=== PATIENT | male | born 2000 | race Caucasian/White ===

== ENCOUNTER 2022-04-12 04:05 | Emergency (ER) | payer OTHER, SELFPAY ==
[2022-04-12 04:16] VITALS: BP 164/101; PULSE 93; RESP 16; TEMP 36.7; O2SAT 100
[2022-04-12] MEDS: THIAMINE HCL 200 MG/2 ML VIAL 100 MG IV PUSH (05:07)
[2022-04-12] MEDS: SODIUM CHLORIDE 0.9% IV 1,000 ML 999 ML IV CONT (05:07)
[2022-04-12 05:24] LABS: Basophils Percent Auto 0.5 % (0.2-1.2); Hematocrit 39.8 % (42.0-52.0); Hemoglobin 14.6 g/dL (14.0-18.0); Immature Granulocyte Absolute 0.03 K/mm3 (0.00-0.031); Immature Granulocyte Percent A 0.4 % (0-0.5); Lymphocytes Absolute Auto 1.25 K/mm3 (0.9-3.2); Mean Corpuscular HGB Conc 36.7 g/dl (32-36); Mean Corpuscular Hemoglobin 33.7 pg (26-34); Mean Corpuscular Volume 91.9 fl (80-100); Mean Platelet Volume 9.1 fl (7.4-10.4); Monocytes Absolute Auto 0.8 K/mm3 (0.1-0.6); Monocytes Percent Auto 11.1 % (2.6-8.5); Neutrophils Absolute Auto 5.2 K/mm3 (1.3-6.7); Platelet Count Result 237 k/mm3 (150-375); Red Blood Count 4.33 M/mm3 (4.6-6.20); Red Cell Distribution Width 12.3 % (11.5-14.5); White Blood Count 7.4 K/mm3 (4.5-10.0)
[2022-04-12 05:33] LABS: Ethanol < 10 mg/dL (<10)
[2022-04-12 05:46] LABS: Alanine Aminotransferase 94 U/L (6-50); Albumin Level 5.2 g/dL (3.5-5.1); Alkaline Phosphatase 103 U/L (38-126); Anion Gap 11 mmol/L (8-16); Aspartate Amino Transferase 145 U/L (17-59); Bilirubin,Total 1.4 mg/dL (0.2-1.3); Blood Urea Nitrogen 5 mg/dL (9-20); Calcium 9.9 mg/dL (8.4-10.2); Carbon Dioxide 30 mmol/L (22-30); Chloride 90 mmol/L (98-107); Estimated CRCL calculation 130 ml/min; Estimated Glomerular Filt Rate > 60; Glucose 93 mg/dL (65-110); Magnesium 1.5 mg/dL (1.6-2.3); Potassium 2.9 mmol/L (3.4-5.0); Sodium 131 mmol/L (137-145)
[2022-04-12] MEDS: LORazepam INJ (*CRX) 2 MG/ML VIAL 1 MG IV PUSH (05:47)
[2022-04-12 06:02] LABS: Appearance Urine Clear (Clear); Bilirubin Urine Negative (Negative); Blood Urine Trace-lysed (Negative); Color Urine Yellow (Yellow); Glucose Urine UA Negative (Negative); Ketones Urine Trace mg/dL (Negative); Leukocyte Esterase Ur Negative LEU/UL (Negative); Nitrate Urine Negative (Negative); Protein Urine Negative (Negative); Urobilinogen Urine 0.2 mg/dL (<2.0)
[2022-04-12 06:06] LABS: Mucus Urine Rare /lpf; RBC Urine 0-2 /hpf (0-2); WBC Urine 0-3 /hpf
[2022-04-12 06:12] LABS: Add Urine Microscopic? YES
[2022-04-12 06:16] LABS: Amphetamine Screen Urine Negative (Negative); Barbiturate Screen Urine Negative (Negative); Benzodiazepines Screen Urine Negative (Negative); Cannabinoid Screen Urine Negative (Negative); Cocaine Screen Urine Negative (Negative); Methadone Screen Urine Negative (Negative); Opiate Screen Urine Negative (Negative); Phencyclidine Screen Urine Negative (Negative)
[2022-04-12] MEDS: MAGNESIUM SULF 2 GM/WATER 50ML 2 GM/50 ML BAG IVPB (06:28)
[2022-04-12] MEDS: POTASSIUM CHLORIDE 20 MEQ TABLET 40 MEQ PO (06:28)
--- NOTE | 2022-04-12 06:56 | ED.ALCOHOL ---
HPI - Alcohol General Chief Complaint: Alcohol <Manuel Greenwood DO - Last Filed: 04/12/22 07:45> Stated Complaint: etoh <Manuel Greenwood DO - Last Filed: 04/12/22 07:45> Time Seen by Provider: 04/12/22 04:48 <Manuel Greenwood DO - Last Filed: 04/12/22 07:45> Source: RN notes reviewed <Manuel Greenwood DO - Last Filed: 04/12/22 07:45> History of Present Illness HPI narrative: Patient presents emergency room from home for alcohol withdrawal. Patient states that he drinks approximately 1/5 of vodka a day states he has been doing this for several years. States that he decided to stop drinking 4 days ago. States that he has been feeling jittery as well as having auditory hallucinations earlier today but is not having them now. He denies any seizure activity he states that he has had no recent illness he denies any chest pain shortness of breath he denies having any nausea or vomiting but does note a decreased appetite <Manuel Greenwood DO - Last Filed: 04/12/22 07:45> Related Data Allergies/Adverse Reactions: Allergies Allergy/AdvReac Type Severity Reaction Status Date / Time No Known Allergies Allergy Verified 04/12/22 09:40 <Manuel Greenwood DO - Last Filed: 04/12/22 07:45> Review of Systems Review of Systems: Gen.: Denies fevers or chills Eyes: Denies eye pain or visual change ENT: Denies congestion Respiratory: Denies shortness of breath or cough CV: Denies chest pain or palpitations GI: Denies abdominal pain nausea, emesis or diarrhea Musculoskeletal: Denies back pain or muscle pain Neuro: Denies numbness, tingling, weakness or focal weakness reports auditory hallucinations earlier none now Skin: Denies rash Except as documented, all other systems reviewed and negative <DO Alessio Casillas Last Filed: 04/12/22 07:45> PMFSH Past Medical History Medical History: Medical History (Updated 04/12/22 @ 09:58 by Ac Fernandez MD) Patient denies significant medical history <Manuel Greenwood DO - Last Filed: 04/12/22 07:45> Social History Social History: Social History (System 04/12/22 @ 09:40 by Jaspal Chaparro) Smoking status: Never smoker Alcohol use details: Drinks 1/5 of vodka a day <Manuel Greenwood DO - Last Filed: 04/12/22 07:45> Exam Narrative: APPEARANCE: No acute distress, nontoxic, resting in bed EYES: EOMI HEENT: Normocephalic, atraumatic, OMM RESPIRATORY: No respiratory distress Clear to auscultation bilaterally with no rhonchi wheezing or rales. CARDIOVASCULAR: Regular rate and rhythm without murmurs rubs or gallops. ABDOMINAL: Soft, nontender, nondistended, no rebound or guarding MUSCULOSKELETAl: Moves all extremities. No clubbing, cyanosis or edema. NEURO: Awake and alert. Following commands, speech normal, no focal deficits SKIN:: Warm, dry. No rashes lesions or abrasions PSYCHIATRIC: Normal affect/mood, <Manuel Greenwood DO - Last Filed: 04/12/22 07:45> Course Course Emergency Course: Care turned over at shift change Dr. Fernandez awaiting case management evaluation and disposition <Manuel Greenwood DO - Last Filed: 04/12/22 07:45> Care turned over at shift change Dr. Fernandez awaiting case management evaluation and disposition [id number]: Coordination has been in this to the patient. They have been in contact with chest not services. Patient will be discharged home and feels comfortable as does his mom. They are continue to work through her chest not until they can find an inpatient alcohol rehab spot. Patient without tachycardia but has some very mild tremors. Will give small rx for librium. Discharge home. <Ac Fernandez MD - Last Filed: 04/12/22 09:59> Vital Signs Vital signs: Vital Signs Temperature 98.1 F 04/12/22 04:16 Pulse Rate 93 04/12/22 04:16 Respiratory Rate 16 04/12/22 04:16 Blood Pressure 164/101 H 04/12/22 04:16 Pulse Oximetry 100 04/12/22 04:16 Oxygen Delivery Ro
[2022-04-12 08:24] VITALS: BP 147/90; PULSE 78; RESP 14; O2SAT 100
--- NOTE | 2022-04-12 10:03 | PCCCNOTE ---
Late entry: called by ER charge account identification clerk at [id number] to meet with patient regarding alcohol resources. Met with patient and mother Hannah in ER Rm 6. Patient confirms his last drink of alcohol on 04/08 and is wanting inpatient rehab. Mother reports that she spoke with [facility] but they needed to speak with the patient. Called to [facility] and patient completed screening. Patient is feeling exhausted and hungry and not wanting to call additional places at this time. Resources provided that work with his insurance. His mother states that she knows about [facility] and [facility] but is really wanting him connected to [email or web address]. Mother is tearful and reports that she is a recovering alcoholic and healthcare market consultant and wanting resources for she and patient to go to meetings together. AA meetings resource list provided to patient and mom. Patient and mother give permission for healthcare market consultant to reach to [facility] and have them follow. Called to Demetrio at [facility] [phone], and requested follow up for patient. Per Demetrio they also have resources for family. Provided Demetrio with patient and mother Hannah's phone numbers. Mother reports that patient has social anxiety and stays in the house alot, he does not have a primary care doctor that follows with him. There is a name on the [place] insurance card Cristy Lin [phone], mother reports she has had a lot of issues with the assigned providers. This healthcare market consultant called to office at and spoke with medical receptionist medical assistant, she confirms that Cristyraquel Burtkizzy is an [employer] that they [place] the [place] and if they call they can get the patient an ER follow up as early as next week. All information provided to patient and Mom at bedside. ER MD Dr. Fernandez and lending consultant Hortencia yadav.
[2022-04-12 10:14] VITALS: BP 136/84; PULSE 98; RESP 18; O2SAT 100
== END 2022-04-12 10:15 | disposition home or self-care (01) ==
PROVIDERS: Emergency Provider Emergency Medicine; PCP Emergency Medicine
DX: F10.239 Alcohol dependence with withdrawal, unspecified (principal); Y90.0 Blood alcohol level of less than 20 mg/100 ml
CPT/HCPCS: 36415; 80053; 80307; 81001; 83735; 85025; 96361; 96365; 96375; 99284; A9270; J2060; J3411; J3475; J7030

== ENCOUNTER 2022-04-18 10:37 | Outpatient (CLI) | payer OTHER, SELFPAY ==
[2022-04-18 19:53] LABS: Alanine Aminotransferase 179 U/L (6-50); Alkaline Phosphatase 93 U/L (38-126); Anion Gap 5 mmol/L (8-16); Aspartate Amino Transferase 138 U/L (17-59); Bilirubin,Total 0.6 mg/dL (0.2-1.3); Blood Urea Nitrogen 6 mg/dL (9-20); Calcium 10.4 mg/dL (8.4-10.2); Carbon Dioxide 31 mmol/L (22-30); Chloride 101 mmol/L (98-107); Estimated Glomerular Filt Rate > 60; Glucose 91 mg/dL (65-110); Magnesium 2.2 mg/dL (1.6-2.3); Potassium 4.6 mmol/L (3.4-5.0); Sodium 137 mmol/L (137-145)
== END 2022-04-18 10:38 | disposition home or self-care (01) ==
LOC: ANHGOSHLAB 10:38
PROVIDERS: PCP Emergency Medicine; Visit Provider Nurse Practitioner
DX: R74.8 Abnormal levels of other serum enzymes (principal); E83.42 Hypomagnesemia
CPT/HCPCS: 36415; 80053; 83735; 84443

== ENCOUNTER 2024-08-13 10:54 | Emergency (ER) | payer SELFPAY ==
[2024-08-13 11:19] VITALS: BP 157/96; PULSE 97; RESP 19; TEMP 36.6; O2SAT 97
--- NOTE | 2024-08-13 13:52 | PC.NURSE ---
Called pt 3 times, no response.
== END 2024-08-13 14:36 | disposition left against medical advice (07) ==
LOC: ANHED 13:57
DX: R20.0 Anesthesia of skin (principal)
CPT/HCPCS: 99199

== ENCOUNTER 2025-01-16 10:24 | Observation (INO) | payer BC, SELFPAY ==
[2025-01-16] VITALS (8 sets, daily range): BP systolic 133–171; BP diastolic 72–87; PULSE 68–145; RESP 16–27; TEMP 37–38.9; O2SAT 98–100; BMI 19.5
--- NOTE | ~2025-01-16 | CT_ITS ---
EXAMINATION: CT brain wo con DATE: 01/16/2025 11:27 INDICATION: Altered mental status. TECHNIQUE: Computed tomography (CT) of the head was performed without intravenous contrast. The mA was adjusted according to patient size. Iterative reconstruction technique was employed. The dose-length product was 681.00 mGy-cm. COMPARISON: None FINDINGS: There is no intracranial hemorrhage, acute infarction, or abnormal intracranial mass lesion. The ventricles are normal in size. The paranasal sinuses are clear. The orbits are normal. The mastoid air cells are normal. IMPRESSION: 1. Normal brain. Reviewed, dictated and finalized at location E. UTER TYPESETTER IMPRESSION: 1. Normal brain.
--- NOTE | ~2025-01-16 | CT_ITS ---
EXAMINATION: CT cervical spine wo con DATE: 01/16/2025 11:27 INDICATION: Fall. TECHNIQUE: Computed tomography (CT) of the cervical spine was performed without intravenous contrast. Automated exposure control and iterative reconstruction technique were employed. The dose-length product was 379.22 mGy-cm. COMPARISON: None FINDINGS: There is 4 degrees dextrocurvature of cervical spine. Vertebral body heights are normal. There is mildly decreased disc height at C6-C7. There is multilevel [id number] facet joint osteoarthritis. There is no neural foraminal stenosis or central canal stenosis. IMPRESSION: 1. No fracture. 2. Mild cervical spondylosis. Reviewed, dictated and finalized at location E. [employer] WORKER
--- NOTE | ~2025-01-16 | XR_ITS ---
Examination: XR chest 1V portable Clinical History: Seizure Comparison: None Technique: Portable AP Findings: Heart size normal. Lungs clear. No acute bony abnormality. IMPRESSION: 1. No acute cardiopulmonary findings given portable technique. Reviewed, dictated and finalized at location R. N TIRE INSPECTOR
--- NOTE | 2025-01-16 10:45 | ED_ITS ---
HPI - General Adult General Chief complaint: Alcohol Stated complaint: alcohol withdrawals Time Seen by Provider: 01/16/25 10:26 History of Present Illness HPI narrative: Patient is a 24-year-old male who presents ER in alcohol withdrawal. He is orient times 2-3 with confusion on date and everything that is going on. He thinks his last drink of alcohol was at 5 in the morning. He typically drinks half of a handle of vodka daily. Father reports patient had a fall today striking left side of his head. There is an abrasion over left judaism. Patient denies any pain or other complaints at this time. Reports previous history of using clonazepam but has not used in a long time. Patient is tremulous and tachycardic. Related Data Allergies Allergy/AdvReac Type Severity Reaction Status Date / Time No Known Allergies Allergy Verified 01/16/25 14:40 Review of Systems 2 Review of Systems: ROS unobtainable: Yes unobtainable due to mental status PMFSH Past Medical History Medical History (Updated 01/16/25 @ 17:10 by Candida Coppola APRN) Alcoholism Allergies Broken ankle Broken ulna Family History Family History Father Cerebrovascular accident Depression Anxiety Alcoholism Grandparent Cerebrovascular accident Bone cancer COPD (chronic obstructive pulmonary disease) Liver cancer Lung cancer Mother Alcoholism Anxiety Depression Social History Social History Smoking status: Current some day smoker Tobacco type: e-cigarettes/vaping Alcohol intake: current Alcohol use details: Drinks 1/5 of vodka a day Substance use: never Substance use type: does not use Lack of Transportation: No Lack of Food: Never True Current Housing: I Have Housing Concerned About Future Housing: No Difficulty Paying Gas/Electric Bills: No Difficulty Paying for Meds: No Currently Unemployed: No Education: Decline to Answer Difficulty w/ Childcare or Family Care: No Spiritual care concerns: No Exam 2 Narrative: GENERAL: Ill-appearing, well-nourished, and in mild distress. HEAD: Normocephalic, atraumatic. EYES: PERRL and EOMI. ENT: Dry mucous membranes. NECK: Supple. CHEST: Clear to auscultation. No respiratory distress. HEART: Tachycardic and regular with a audible click along the left sternal day. Normal peripheral pulses. ABDOMEN: Soft, nontender, nondistended. EXTREMITIES: Normal range of motion. No edema. SKIN: Warm, dry, no rash. NEURO: Alert and oriented x3. PSYCH: Normal mood and affect. Course Course Emergency Course: 1305: Discussed with Dr. Ahmadi, patient is okay for the IMU and does not require ICU care at this time. Would recommend d/c ceftriaxone and start zosyn to cover for possible aspiration. Admit to hospitalist service. Electrolytes replaced orally and through IV. Vital Signs Vital signs: Vital Signs Temperature 99.6 F 01/16/25 10:34 Pulse Rate 145 H 01/16/25 10:34 Respiratory Rate 27 H 01/16/25 10:34 Blood Pressure 171/73 H 01/16/25 10:34 Pulse Oximetry 99 01/16/25 10:34 Oxygen Delivery Room Air 01/16/25 10:34 Temperature 96.8 F L 01/19/25 07:59 Pulse Rate 84 01/19/25 08:00 Respiratory Rate 18 01/19/25 07:59 Blood Pressure 115/75 01/19/25 07:59 Pulse Oximetry 100 01/19/25 07:59 Oxygen Delivery Room Air 01/19/25 08:35 Medical Decision Making Differential Diagnosis Differential Diagnosis: Alcohol withdrawal, alcohol intoxication, sepsis, pneumonia, UTI, electrolyte derangement, encephalopathy, seizure Vital Signs Vital Signs: Vital Signs Temperature 99.6 F 01/16/25 10:34 Pulse Rate 145 H 01/16/25 10:34 Respiratory Rate 27 H 01/16/25 10:34 Blood Pressure 171/73 H 01/16/25 10:34 Pulse Oximetry 99 01/16/25 10:34 Oxygen Delivery Room Air 01/16/25 10:34 Temperature 96.8 F L 01/19/25 07:59 Pulse Rate 84 01/19/25 08:00 Respiratory Rate 18 01/19/25 07:59 Blood Pressure 115/75 01/19/25 07:59 Pulse Oximetry 100 01/19/25 07:59 Oxygen Delivery Room Air 01/19/25 08:35 Lab Data 01/18/25 05:12 01/18/25 05:12 Labs: Lab Results 01/16/25 01/16/25 Range/Units 10:51 12:45 WBC 14.0 H (4.5-10.0) K/mm3 RBC 5.26 (4.6-6.20) M/mm3 Hgb 16.0 (14.0-18.0) g/dL Hct 46.2 (42.0-52.0) % MCV 87.8 (80-100) fl MCH 30.4 (26-34) pg MCHC 34.6 (32-36) g/dl RDW 14.0 (11.5-14.5) % Plt Count 140 L (150-375) k/mm3 MPV 9.1 (7.4-10.4) fl Immature Gran % (Auto) 0.6 H (0-0.5) % Neut % (Auto) 85.2 H (45.5-73.1) % Lymph % (Auto) 4.7 L (18.3-44.2) % [place] % (Auto) 9.2 H (2.6-8.5) % Eos % (Auto) 0.2 (0-4.4) % Baso % (Auto) 0.1 L (0.2-1.2) % Lymph # (Auto) 0.66 L (0.9-3.2) K/mm3 [place] # (Auto) 1.3 H (0.1-0.6) K/mm3 Eos # (Auto) 0.0 (0-0.3) K/mm3 Baso # (Auto) 0.0 (0.0-0.1) K/mm3 Abs Immat Gran (auto) 0.08 H (0.00-0.031) K/mm3 Absolute Neuts (auto) 11.9 H (1.3-6.7) K/mm3 Absolute Nucleated RBC 0.000 (0.0-0.012) K/mm3 Nucleated RBC % 0.0 (0.0-0.2) % PT 13.9 (11.1-14.7) Seconds INR 1.1 APTT 25.5 (22.3-36.8) Seconds Sodium 137 (137-145) mmol/L Potassium 2.5 L* (3.4-5.0) mmol/L Chloride 90 L (98-107) mmol/L Carbon Dioxide 12 L (22-30) mmol/L Anion Gap 35 H (4-12) mmol/L BUN 9 (9-20) mg/dL Creatinine 1.03 (0.7-1.3) mg/dL Estim Creat Clear Calc 94 ml/min Estimated GFR > 60 (59 - ) Glucose 172 H (65-110) mg/dL Calcium 10.1 (8.4-10.2) mg/dL Total Bilirubin 1.7 H (0.2-1.3) mg/dL AST 132 H (17-59) U/L ALT 97 H (6-50) U/L Alkaline Phosphatase 114 (38-126) U/L Ammonia 61 H (9-30) umol/L Total Protein 9.3 H (6.3-8.2) g/dL Albumin 5.7 H (3.5-5.1) g/dL Lipase 151 (23-300) U/L Urine Opiates Screen Negative (Negative) Urine Methadone Screen Negative (Negative) Ur Barbiturates Screen Negative (Negative) Ur Phencyclidine Scrn Negative (Negative) Ur Amphetamine Screen Negative (Negative) U Benzodiazepines Scrn Positive A (Negative) Urine Cocaine Screen Negative (Negative) U Cannabinoids Screen Negative (Negative) Ethyl Alcohol < 10 (<10) mg/dL Imaging Data Radiologist's impression: ITS Impressions Head CT 01/16/25 11:28 IMPRESSION: 1. Normal brain. Cervical Spine CT 01/16/25 11:29 IMPRESSION: 1. No fracture. 2. Mild cervical spondylosis. Chest X-Ray 01/16/25 13:08 IMPRESSION: 1. No acute cardiopulmonary findings given portable technique. Critical Care Time Critical Care Time Critical Care Time: Yes Total Critical Care Time: 35 Discharge Plan Discharge Clinical Impression: Alcohol withdrawal seizure, Hypokalemia Alcohol withdrawal Qualifiers: Complication of substance-induced condition: with unspecified complication Q ualified Code(s): F10.939 - Alcohol use, unspecified with withdrawal, unspecified Pneumonia Qualifiers: Pneumonia type: aspiration pneumonia Aspiration pneumonia type: due to vomit L aterality: unspecified laterality Lung location: unspecified part of lung Q ualified Code(s): J69.0 - Pneumonitis due to inhalation of food and vomit Patient Disposition: Still a Patient Condition: Stable
[2025-01-16] MEDS: SODIUM CHLORIDE 0.9% IV 1,000 ML 999 ML IV CONT ×2 (10:48)
[2025-01-16] MEDS: diazePAM INJ (*CRX) 10 MG/2 ML SYRINGE 5 MG IV PUSH (10:49)
[2025-01-16] MEDS: SODIUM CHLORIDE 0.9% IV 100 ML 999 ML IV CONT (10:49)
[2025-01-16] MEDS: THIAMINE HCL 200 MG/2 ML VIAL 100 MG IV PUSH (10:49)
[2025-01-16 11:06] LABS: Hematocrit 46.2 % (42.0-52.0); Hemoglobin 16.0 g/dL (14.0-18.0); Immature Granulocyte Percent A 0.6 % (0-0.5); Lymphocytes Absolute Auto 0.66 K/mm3 (0.9-3.2); Mean Corpuscular HGB Conc 34.6 g/dl (32-36); Mean Corpuscular Hemoglobin 30.4 pg (26-34); Mean Corpuscular Volume 87.8 fl (80-100); Nucleated Red Blood Cells Absolute Auto 0.000 K/mm3 (0.0-0.012); Nucleated Red Blood Cells Perc 0.0 % (0.0-0.2); Platelet Count Result 140 k/mm3 (150-375); Red Blood Count 5.26 M/mm3 (4.6-6.20); White Blood Count 14.0 K/mm3 (4.5-10.0)
[2025-01-16 11:17] LABS: INR 1.1; Prothrombin Time 13.9 Seconds (11.1-14.7)
[2025-01-16 11:18] LABS: Partial Thromboplastin Time 25.5 Seconds (22.3-36.8)
[2025-01-16 11:19] LABS: Ammonia 61 umol/L (9-30)
[2025-01-16 11:32] LABS: Alanine Aminotransferase 97 U/L (6-50); Albumin Level 5.7 g/dL (3.5-5.1); Alkaline Phosphatase 114 U/L (38-126); Anion Gap 35 mmol/L (4-12); Aspartate Amino Transferase 132 U/L (17-59); Bilirubin,Total 1.7 mg/dL (0.2-1.3); Blood Urea Nitrogen 9 mg/dL (9-20); Calcium 10.1 mg/dL (8.4-10.2); Carbon Dioxide 12 mmol/L (22-30); Chloride 90 mmol/L (98-107); Estimated CRCL calculation 94 ml/min; Estimated Glomerular Filt Rate > 60; Glucose 172 mg/dL (65-110); Lipase 151 U/L (23-300); Potassium 2.5 mmol/L (3.4-5.0); Sodium 137 mmol/L (137-145); Total Protein 9.3 g/dL (6.3-8.2)
[2025-01-16] MEDS: FOLIC ACID 1 MG/0.2 ML INJ IV PUSH (11:32)
[2025-01-16] MEDS: diazePAM INJ (*CRX) 10 MG/2 ML SYRINGE IV PUSH ×4 (11:41→18:54)
[2025-01-16] MEDS: POTASSIUM CHLORIDE 20 MEQ PACKET (FOR LIQUID) 40 MEQ PO (11:52)
[2025-01-16] MEDS: KCL 20 MEQ/SW 100 ML 100 ML 50 MEQ IVPB (12:07)
[2025-01-16] MEDS: ACETAMINOPHEN 650 MG SUPPOSITORY RECTAL (13:05)
[2025-01-16 13:09] LABS: Cannabinoid Screen Urine Negative (Negative)
--- NOTE | 2025-01-16 13:23 | P.HP_ITS ---
H&P: HPI History of Present Illness Date/Time: 01/16/25 13:23 Chief Complaint: Alcohol withdrawal Narrative: 24-year-old male with a past medical history of alcoholism presents to the ED from home with his father on 01/16/2025 with complaints of alcohol withdrawal and a seizure lasting about 1 minute while EN route to the ED. His father reports the patient fell today and hit the left side of his head as well. Has been abusing alcohol for about 5 years. Patient drinks up to half a handle of vodka daily. He has recently been trying to decrease his alcohol intake so he takes shots throughout the day in an attempt to prevent withdrawal symptoms. Previous withdrawal symptoms include seizure, tremors, visual and auditory hallucinations. Has been in inpatient rehab 3 times, all within the past year. The longest he has remained sober after rehab is 6 weeks. Patient further states he has been vomiting ?a lot? almost every day. The patient was admitted at [facility] about 6 weeks ago for alcohol withdrawal as well. Records requested. Patient lives with his father who works 12 hours. He wishes to discharge to a rehab program. Patient's father states he cannot go back to his home due to his continued alcohol abuse. Has little contact with his mother, who is also an alcoholic. Patient is interested in sober living housing after discharge from inpatient rehabilitation. Initial vital signs 171/73, HR 145, respirations 27, temperature 99.6?, O2 99% on room air. Next WBC 14.0, platelet count 140, potassium 2.5, chloride 90, carbon dioxide 12, anion gap 35, glucose 172. Total bilirubin 1.7, AST 132, ALT 97, ammonia 61. UDS negative for alcohol, positive for benzodiazepines. Head CT with no acute findings. Cervical spine CT with no fracture. No acute cardiopulmonary findings. Review of Systems Review of Systems: All systems reviewed & are unremarkable except as noted in HPI and below PMFSH Past Medical History Medical History (Updated 01/16/25 @ 17:10 by Candida Coppola APRN) Alcoholism Allergies Broken ankle Broken ulna Family History Family History Father Cerebrovascular accident Depression Anxiety Alcoholism Grandparent Cerebrovascular accident Bone cancer COPD (chronic obstructive pulmonary disease) Liver cancer Lung cancer Mother Alcoholism Anxiety Depression Social History Social History Smoking status: Current some day smoker Tobacco type: e-cigarettes/vaping Alcohol intake: current Alcohol use details: Drinks 1/5 of vodka a day Substance use: never Substance use type: does not use Lack of Transportation: No Lack of Food: Never True Current Housing: I Have Housing Concerned About Future Housing: No Difficulty Paying Gas/Electric Bills: No Difficulty Paying for Meds: No Currently Unemployed: No Education: Decline to Answer Difficulty w/ Childcare or Family Care: No Spiritual care concerns: No Meds Home Medications and Allergies Home Medications ?Medication ?Instructions ?Recorded ?Confirmed ?Type No Home Medications 01/16/25 01/16/25 H istory Allergies Allergy/AdvReac Type Severity Reaction Status Date / Time No Known Allergies Allergy Verified 01/16/25 14:40 Vital Signs Vital Signs - 24 hr 01/16/25 10:34 01/16/25 12:57 Temperature 99.6 F 102.1 F H Pulse Rate 145 H 117 H Respiratory Rate 27 H 16 Blood Pressure 171/73 H 150/87 H Pulse Oximetry 99 100 Oxygen Delivery Room Air H&P: Results Labs Labs: Short CBC 01/16/25 Range/Units 10:51 WBC 14.0 H (4.5-10.0) K/mm3 Hgb 16.0 (14.0-18.0) g/dL Hct 46.2 (42.0-52.0) % Plt Count 140 L (150-375) k/mm3 BMP 01/16/25 10:51 Sodium 137 Potassium 2.5 L* Chloride 90 L Carbon Dioxide 12 L BUN 9 Creatinine 1.03 Glucose 172 H Calcium 10.1 Liver Function 01/16/25 Range/Units 10:51 Total Bilirubin 1.7 H (0.2-1.3) mg/dL AST 132 H (17-59) U/L ALT 97 H (6-50) U/L Alkaline Phosphatase 114 (38-126) U/L Albumin 5.7 H (3.5-5.1) g/dL Assessment and Plan Assessment and plan (1) Alcohol withdrawal: Qualifiers: Complication of substance-induced condition: with unspecified complication Qualified Code(s): F10.939 - Alcohol use, unspecified with withdrawal, unspecified Code(s): F10.939 - Alcohol use, unspecified with withdrawal, unspecified Status: Acute Assessment and Plan: Alcohol withdrawal and a seizure lasting about 1 minute while EN route to the ED. Has been abusing alcohol for about 5 years. Patient drinks up to half a handle of vodka daily. He has recently been trying to decrease his alcohol intake so he takes shots throughout the day - daily ETOH use: Half a handle of vodka daily. Recently attempting to decrease intake. - last drink: Early this morning at about 5:00 a.m. - CIWA protocol in place - diazepam PRN - Librium 50 mg scheduled - thiamine and folic acid daily - seizure precautions - neurochecks Q2H - LR at 125 - antiemetics PRN - readiness to quit: Care coordination consulted. Patient is interested in discharging to inpatient rehab then sober living housing after that. (2) Pneumonia: Qualifiers: Pneumonia type: aspiration pneumonia Aspiration pneumonia type: due to vomit Laterality: unspecified laterality Lung location: unspecified part of lung Qualified Code(s): J69.0 - Pneumonitis due to inhalation of food and vomit Code(s): J18.9 - Pneumonia, unspecified organism Status: Acute Assessment and Plan: Concern for aspiration pneumonia due to frequent vomiting, leukocytosis, fever - started on Zosyn on 01/16 - acetaminophen p.r.n. - DuoNeb p.r.n. (3) Hypokalemia: Code(s): E87.6 - Hypokalemia Status: Acute Assessment and Plan: Potassium initially 2.5 on presentation. Improved to 3.0 after 20 mEq potassium chloride and 40 mEq p.o. -continue to trend electrolytes (4) Serum ammonia increased: Code(s): E72.20 - Disorder of urea cycle metabolism, unspecified Status: Acute Assessment and Plan: Ammonia 6.1 on admit. -lactulose 20 g p.o. Q8 -titrate to achieve 2-3 soft bowel movements daily -switch to lactulose enema if patient unable to tolerate p.o. Plan Diet: Regular GI prophylaxis: Protonix DVT prophylaxis: SCDs lines/drains: PIV Fluids: LR at 125 Code status: Full Quality VTE Prophylaxis VTE prophylaxis: mechanical ordered Hospitalist MIPS Advance Care Plan I have confirmed that the patient's Advanced Care Plan is present, code status is documented, or surrogate decision maker is listed in patient medical record.: Yes Medication Reconciliation I have utilized all available resources to obtain, update and review the patients current medications (includes all prescriptions, OTC, herbals, cannab is, and nutritional supplements).: Yes
[2025-01-16] MEDS: PIPERACILLIN/TAZOBACTAM SOD 3.375 GM in SODIUM CHLORIDE 0.9% IV 50 ML 100 ML IVPB ×2 (13:47→18:53)
[2025-01-16] MEDS: chlordiazePOXIDE (*CRX) 25 MG CAPSULE 50 MG PO ×2 (13:52→18:54)
--- NOTE | 2025-01-16 14:05 | WPCEDHO ---
ED Hand Off Checklist All vitals saved:yes IV Site documented:yes All med administrations documented:yes Triage Note Triage Note Patient to the ED with complaints 01/16/25 10:34 of alcohol and drug withdrawal. Patient states he has gone through alcohol withdrawal around 6 weeks ago. patient states he drank vodka last at 0500 this morning. Father states patient had a seizure in route to the ED lasting approx 1 minute. Allergies No Known Allergies Allergy (Verified 10/04/24 15:48) Family History (Last Reviewed 10/04/24 @ 15:53 by Ravin Gale MD) Father Cerebrovascular accident Depression Anxiety Alcoholism Grandparent Cerebrovascular accident Bone cancer COPD (chronic obstructive pulmonary disease) Liver cancer Lung cancer Mother Alcoholism Anxiety Depression Active Medications including assessments/comments Diazepam (Diazepam Inj (*Crx) 10 Mg/2 Ml Syringe) 10 mg IV PUSH Q5M PRN PRN Reason: CIWA > 15 Last Admin: 01/16/25 13:57 Dose: 10 mg Documented By: [facility] SYLVIA CINE Assessment Document 01/16/25 13:57 [facility] (Rec: 01/16/25 13:57 [facility] [id number]) [facility] Assessment Reason for CIWA orders Administration Most Recent CIWA 15 Score Administered/Completed Medications Discontinued Medications Acetaminophen (Acetaminophen 650 Mg Suppository) 650 mg RECTAL ONCE ONE Stop: 01/16/25 13:03 Last Admin: 01/16/25 13:05 Dose: 650 mg Documented By: [facility] Chlordiazepoxide HCl (Chlordiazepoxide (*Crx) 25 Mg Capsule) 50 mg PO ONCE ONE Stop: 01/16/25 13:36 Last Admin: 01/16/25 13:52 Dose: 50 mg Documented By: [facility] Diazepam (Diazepam Inj (*Crx) 10 Mg/2 Ml Syringe) 5 mg IV PUSH ONCE ONE Stop: 01/16/25 10:37 Last Admin: 01/16/25 10:49 Dose: 5 mg Documented By: [facility] Diazepam (Diazepam Inj (*Crx) 10 Mg/2 Ml Syringe) 10 mg IV PUSH ONCE ONE Stop: 01/16/25 11:07 Last Admin: 01/16/25 11:41 Dose: 10 mg Documented By: [facility] Folic Acid (Folic Acid 1 Mg/0.2 Ml Inj) 1 mg IV PUSH ONCE STA Stop: 01/16/25 10:37 Last Admin: 01/16/25 11:32 Dose: 1 mg Documented By: [facility] Sodium Chloride (Normal Saline Iv) 1,000 mls @ 999 mls/hr IV CONT .Q1H1M STA Stop: 01/16/25 11:43 Last Infusion: 01/16/25 13:10 Dose: Infused Documented By: [facility] Admin: 01/16/25 10:48 Dose: 999 mls/hr Documented By: [facility] Sodium Chloride (Normal Saline Iv) 1,000 mls @ 999 mls/hr IV CONT .Q1H1M STA Stop: 01/16/25 11:43 Last Admin: 01/16/25 10:48 Dose: 999 mls/hr Documented By: [facility] Sodium Chloride (Normal Saline Iv) 100 mls @ 999 mls/hr IV CONT .Q6M STA Stop: 01/16/25 10:48 Last Infusion: 01/16/25 11:44 Dose: Infused Documented By: [facility] Admin: 01/16/25 10:49 Dose: 999 mls/hr Documented By: [facility] Potassium Chloride (Kcl 20 Meq/Sw 100 Ml) 100 mls @ 50 mls/hr IVPB ONCE STA Stop: 01/16/25 13:34 Last Admin: 01/16/25 12:07 Dose: 50 mls/hr Documented By: LEONARD Co-signed By: PLOLO Ceftriaxone Sodium 1 gm/ (Sodium Chloride) 50 mls @ 100 mls/hr IVPB ONCE STA Stop: 01/16/25 13:30 Last Admin: 01/16/25 13:36 Dose: Not Given Documented By: [facility] Non-Admin Reason: Order Discontinued Piperacillin Sod/Tazobactam (Sod 3.375 gm/ Sodium Chloride) 50 mls @ 100 mls/hr IVPB ONCE STA Stop: 01/16/25 13:34 Last Admin: 01/16/25 13:47 Dose: 100 mls/hr Documented By: [facility] Potassium Chloride (Potassium Chloride 20 Meq Er Tablet) 40 meq PO ONCE STA Stop: 01/16/25 11:36 Last Admin: 01/16/25 11:53 Dose: Not Given Documented By: [facility] Non-Admin Reason: Order Discontinued Potassium Chloride (Potassium Chloride 20 Meq Packet (For Liquid)) 40 meq PO ONCE STA Stop: 01/16/25 11:48 Last Admin: 01/16/25 11:52 Dose: 40 meq Documented By: [facility] Thiamine HCl (Thiamine Hcl 200 Mg/2 Ml Vial) 100 mg IV PUSH ONCE STA Stop: 01/16/25 10:37 Last Admin: 01/16/25 10:49 Dose: 100 mg Documented By: [facility] Interventions/Assessments IV / Saline Lock, Insert Start: 01/16/25 10:24 Freq: Status: Active Protocol: Document 01/16/25 12:07 [facility] (Rec: 01/16/25 12:07 [facility] [id number]) IV Assessment Peripheral Access Right Hand IV Catheter Access Initiated IV Insertion Date 01/16/25 IV Insertion Time 12:07 Catheter Gauge 18 IV Insertion 1 Attempts Ultrasound Used for No Placement IV Site Assessment WNL IV Care and WNL Maintenance PA: Neurological Assessment Start: 01/16/25 10:24 Freq: Status: Active Protocol: Document 01/16/25 10:38 [facility] (Rec: 01/16/25 10:38 [facility] [id number]) Neurological Assessment Level of Alert,Awake Consciousness Arousable to Verbal Orientation Oriented to Person,Oriented to Place,Oriented to Time Neurological Confusion,Tremors Symptoms Hallucination Type None Unable to Redirect No Behavior Behavior Appropriate,Cooperative Patient Able to Comprehend Comprehension Memory Description Intact Ability to Maintain Impaired Balance Facial Symmetry Symmetrical Speech Pattern Clear Ability to Swallow Normal Tongue Position Midline Longs Coma Scale Eyes Open Verbal Oriented and Alert Motor Follows Commands Ruth Ann Coma Total 15 Score Last Vital Signs Temperature 99.5 F 01/16/25 13:58 Pulse Rate 95 01/16/25 13:58 Respiratory Rate 18 01/16/25 13:58 Pulse Oximetry 98 01/16/25 13:58 Blood Pressure 137/73 01/16/25 13:58 Blood Pressure Mean 94 01/16/25 13:58 Oxygen Delivery Room Air 01/16/25 10:34 Weight 66.9 kg 01/16/25 10:34 Last Result - Abnormals Only WBC 14.0 K/mm3 (4.5-10.0) H 01/16/25 10:51 Plt Count 140 k/mm3 (150-375) L 01/16/25 10:51 Immature Gran % (Auto) 0.6 % (0-0.5) H 01/16/25 10:51 Neut % (Auto) 85.2 % (45.5-73.1) H 01/16/25 10:51 Lymph % (Auto) 4.7 % (18.3-44.2) L 01/16/25 10:51 [place] % (Auto) 9.2 % (2.6-8.5) H 01/16/25 10:51 Baso % (Auto) 0.1 % (0.2-1.2) L 01/16/25 10:51 Lymph # (Auto) 0.66 K/mm3 (0.9-3.2) L 01/16/25 10:51 [place] # (Auto) 1.3 K/mm3 (0.1-0.6) H 01/16/25 10:51 Abs Immat Gran (auto) 0.08 K/mm3 (0.00-0.031) H 01/16/25 10:51 Absolute Neuts (auto) 11.9 K/mm3 (1.3-6.7) H 01/16/25 10:51 Potassium 2.5 mmol/L (3.4-5.0) L* 01/16/25 10:51 Chloride 90 mmol/L (98-107) L 01/16/25 10:51 Carbon Dioxide 12 mmol/L (22-30) L 01/16/25 10:51 Anion Gap 35 mmol/L (4-12) H 01/16/25 10:51 Glucose 172 mg/dL (65-110) H 01/16/25 10:51 Total Bilirubin 1.7 mg/dL (0.2-1.3) H 01/16/25 10:51 AST 132 U/L (17-59) H 01/16/25 10:51 ALT 97 U/L (6-50) H 01/16/25 10:51 Ammonia 61 umol/L (9-30) H 01/16/25 10:51 Total Protein 9.3 g/dL (6.3-8.2) H 01/16/25 10:51 Albumin 5.7 g/dL (3.5-5.1) H 01/16/25 10:51 U Benzodiazepines Scrn Positive (Negative) A 01/16/25 12:45 Most Recent CIWA Score CIWA Total Score 15 01/16/25 13:53
--- NOTE | 2025-01-16 14:35 | ADMGEN ---
This patient, Jorge Oneil, was admitted to IMU Room 206-01 @ 1435. Patient/family oriented to hospital policies and general routines including ID bracelet, bed and alarms, visiting hours, pain management, procedures, bathroom and other care routines, personal items, smoking policy, room service/diet, and visiting hours. Information on how to activate the Rapid Response Team has been discussed. Patient/Family are encouraged to report perceived risks to care and to ask questions if they do not understand what they are told or what they should do.
[2025-01-16] MEDS: AZITHROMYCIN IV 500 MG in SODIUM CHLORIDE 0.9% IV 250 ML IVPB (15:28)
[2025-01-16] MEDS: ONDANSETRON INJ 4 MG/2 ML VIAL IV PUSH (15:28)
[2025-01-16] MEDS: LACTATED RINGERS 1,000 ML 125 ML IV CONT (15:29)
[2025-01-16] MEDS: LACTULOSE 20 GM/30 ML UDC PO ×2 (15:30→21:36)
[2025-01-16] MEDS: PANTOPRAZOLE 40 MG TABLET PO (15:31)
[2025-01-16 16:03] LABS: Anion Gap 8 mmol/L (4-12); Blood Urea Nitrogen 9 mg/dL (9-20); Calcium 8.9 mg/dL (8.4-10.2); Carbon Dioxide 28 mmol/L (22-30); Chloride 98 mmol/L (98-107); Estimated CRCL calculation 121 ml/min; Estimated Glomerular Filt Rate > 60; Glucose 77 mg/dL (65-110); Magnesium 1.6 mg/dL (1.6-2.3); Potassium 3.0 mmol/L (3.4-5.0); Sodium 134 mmol/L (137-145)
[2025-01-16] MEDS: NICOTINE (*PBKC) 21 MG PATCH 1 PATCH TRANSDERM (16:06)
[2025-01-17] VITALS (11 sets, daily range): BP systolic 125–149; BP diastolic 76–86; PULSE 71–115; RESP 15–20; TEMP 36.4–37.2; O2SAT 99–100
[2025-01-17] MEDS: chlordiazePOXIDE (*CRX) 25 MG CAPSULE 50 MG PO ×5 (00:26→23:34)
[2025-01-17] MEDS: PIPERACILLIN/TAZOBACTAM SOD 3.375 GM in SODIUM CHLORIDE 0.9% IV 50 ML 100 ML IVPB ×5 (00:26→23:34)
[2025-01-17] MEDS: LACTATED RINGERS 1,000 ML 125 ML IV CONT ×2 (01:07→08:34)
[2025-01-17 04:10] LABS: Hematocrit 39.2 % (42.0-52.0); Hemoglobin 13.4 g/dL (14.0-18.0); Immature Granulocyte Percent A 0.4 % (0-0.5); Immature Platelet Fraction Pct 4.1 % (0.9-11.2); Lymphocytes Absolute Auto 1.48 K/mm3 (0.9-3.2); Mean Corpuscular HGB Conc 34.2 g/dl (32-36); Mean Corpuscular Hemoglobin 29.8 pg (26-34); Mean Corpuscular Volume 87.3 fl (80-100); Nucleated Red Blood Cells Absolute Auto 0.000 K/mm3 (0.0-0.012); Nucleated Red Blood Cells Perc 0.0 % (0.0-0.2); Platelet Count Result 101 k/mm3 (150-375); Red Blood Count 4.49 M/mm3 (4.6-6.20); White Blood Count 7.9 K/mm3 (4.5-10.0)
[2025-01-17 04:21] LABS: Ammonia < 9 umol/L (9-30)
[2025-01-17 04:38] LABS: Alanine Aminotransferase 83 U/L (6-50); Albumin Level 4.1 g/dL (3.5-5.1); Alkaline Phosphatase 96 U/L (38-126); Anion Gap 6 mmol/L (4-12); Aspartate Amino Transferase 204 U/L (17-59); Bilirubin,Total 1.8 mg/dL (0.2-1.3); Blood Urea Nitrogen 4 mg/dL (9-20); Calcium 9.4 mg/dL (8.4-10.2); Carbon Dioxide 29 mmol/L (22-30); Chloride 96 mmol/L (98-107); Estimated CRCL calculation 149 ml/min; Estimated Glomerular Filt Rate > 60; Glucose 79 mg/dL (65-110); Magnesium 1.6 mg/dL (1.6-2.3); Potassium 2.9 mmol/L (3.4-5.0); Sodium 131 mmol/L (137-145); Total Protein 6.9 g/dL (6.3-8.2)
[2025-01-17] MEDS: MAGNESIUM SULF 2 GM/WATER 50ML 2 GM/50 ML BAG IVPB (08:34)
[2025-01-17] MEDS: POTASSIUM CHLORIDE INJ 40 MEQ in SODIUM CHLORIDE 0.9% IV 500 ML 130 MEQ IVPB (08:35)
[2025-01-17] MEDS: FOLIC ACID 1 MG TABLET PO (08:36)
[2025-01-17] MEDS: NICOTINE (*PBKC) 21 MG PATCH 1 PATCH TRANSDERM (08:36)
[2025-01-17] MEDS: POTASSIUM CHLORIDE 20 MEQ ER TABLET PO (08:36)
[2025-01-17] MEDS: PANTOPRAZOLE 40 MG TABLET PO (08:36)
[2025-01-17] MEDS: THIAMINE HCL 100 MG TABLET PO (08:36)
--- NOTE | 2025-01-17 14:23 | PM.IMPN2 ---
Subjective Date/time seen: 01/17/25 14:23 Interval history: Feels little better. CIWA score reviewed. Trending down. Remains on Librium. Family at bedside. Review of Systems Review of Systems: All systems reviewed & are unremarkable except as noted in HPI and below Exam Narrative: GENERAL: Well-appearing, well-nourished, no acute distress HEAD: Normocephalic, atraumatic. Injury to his face noted with scabs no active bleeding EYES: PERRL and EOMI. ENT: Dry mucous membranes. NECK: Supple. CHEST: Clear to auscultation. No respiratory distress. HEART: Regular rate and rhythm, Normal peripheral pulses. ABDOMEN: Soft, nontender, nondistended. EXTREMITIES: Normal range of motion. No edema. SKIN: Warm, dry, no rash. NEURO: Alert and oriented x3. PSYCH: Normal mood and affect. Slightly tremulous Objective Data Vital Signs Vital Signs: Vital Signs - 24 hr 01/16/25 15:00 01/16/25 16:00 01/16/25 16:00 Temperature 98.9 F 99.0 F Pulse Rate 89 94 Pulse Rate [Apical] Respiratory Rate 20 20 Blood Pressure 151/73 H 147/72 H Pulse Oximetry 98 100 100 Oxygen Delivery Room Air 01/16/25 16:00 01/16/25 18:00 01/16/25 20:00 Temperature 98.6 F Pulse Rate 100 99 68 Pulse Rate [Apical] Respiratory Rate 20 Blood Pressure 133/75 Pulse Oximetry 100 Oxygen Delivery 01/16/25 20:00 01/16/25 20:00 01/16/25 20:00 Temperature Pulse Rate 72 Pulse Rate [Apical] 91 Respiratory Rate Blood Pressure Pulse Oximetry 100 Oxygen Delivery Room Air 01/16/25 22:00 01/17/25 00:00 01/17/25 00:00 Temperature 98.2 F Pulse Rate 88 86 Pulse Rate [Apical] 88 Respiratory Rate 15 Blood Pressure 142/86 H Pulse Oximetry 100 Oxygen Delivery 01/17/25 00:00 01/17/25 00:00 01/17/25 02:00 Temperature Pulse Rate 95 87 Pulse Rate [Apical] Respiratory Rate Blood Pressure Pulse Oximetry 100 Oxygen Delivery Room Air 01/17/25 04:00 01/17/25 04:00 01/17/25 04:00 Temperature 98.9 F Pulse Rate 88 Pulse Rate [Apical] 83 Respiratory Rate 18 Blood Pressure 137/82 Pulse Oximetry 100 100 Oxygen Delivery Room Air 01/17/25 06:00 01/17/25 07:54 01/17/25 08:00 Temperature Pulse Rate 71 83 Pulse Rate [Apical] 89 Respiratory Rate 18 Blood Pressure Pulse Oximetry 100 Oxygen Delivery Room Air 01/17/25 08:00 01/17/25 08:00 01/17/25 10:00 Temperature 97.5 F L Pulse Rate 96 83 94 Pulse Rate [Apical] Respiratory Rate 18 Blood Pressure 149/76 H Pulse Oximetry 100 Oxygen Delivery 01/17/25 12:00 01/17/25 12:00 01/17/25 12:00 Temperature 98.7 F Pulse Rate 92 93 93 Pulse Rate [Apical] Respiratory Rate 20 20 Blood Pressure 149/85 H Pulse Oximetry 100 100 Oxygen Delivery Room Air Intake/Output Intake/Output: Intake & Output 01/14/25 01/15/25 01/16/25 01/17/25 23:59 23:59 23:59 23:59 Intake Total 3100 2151.3 Balance 3100 2151.3 Meds/Results Medications: Active Medications Generic Name Dose Route Start Last Admin Trade Name Freq PRN Reason Stop Dose Admin Acetaminophen 650 mg 01/16/25 13:17 Acetaminophen 325 Mg Tablet PO Q4H PRN Mild Pain (1-3) or Fever Albuterol/Ipratropium 3 ml 01/16/25 17:08 Ipratropium 0.5 Mg/Albuterol Sulfate 2.5 Mg (Base) Ampul.Neb 3 Ml INHALATION Q6HRT PRN Shortness Of Breath Or Wheezing Chlordiazepoxide HCl 50 mg 01/16/25 18:00 01/17/25 11:52 Chlordiazepoxide (*Crx) 25 Mg Capsule PO 50 mg Q6HR PANFILO Administration Diazepam 5 mg 01/16/25 16:25 Diazepam Inj (*Crx) 10 Mg/2 Ml Syringe IV PUSH Q1H PRN Alcohol Withdrawal Folic Acid 1 mg 01/17/25 09:00 01/17/25 08:36 Folic Acid 1 Mg Tablet PO 1 mg DAILY PANFILO Administration Piperacillin Sod/Tazobactam 50 mls @ 100 mls/hr 01/16/25 19:00 01/17/25 11:51 Sod 3.375 gm/ Sodium Chloride IVPB 100 mls/hr Q6HR PANFILO Administration Lactated Ringer's 1,000 mls @ 125 mls/hr 01/16/25 13:20 01/17/25 08:34 Lr - Lactated Ringers Iv IV CONT 125 mls/hr .Q8H PANFILO Administration Azithromycin 500 mg/ Sodium 250 mls @ 250 mls/hr 01/17/25 16:00 Chloride IVPB 01/20/25 16:59 Q24H PANFILO Lactulose 20 gm 01/16/25 13:55 01/17/25 13:28 Lactulose 20 Gm/30 Ml Udc PO Not Given Q8H PANFILO Nicotine 1 patch 01/16/25 15:55 01/17/25 08:36 Nicotine (*Ilda) 21 Mg Patch TRANSDERM 1 patch DAILY PANFILO Administration Ondansetron HCl 4 mg 01/16/25 13:27 01/16/25 15:28 Ondansetron Inj 4 Mg/2 Ml Vial IV PUSH 4 mg Q4H PRN Administration Nausea And Vomiting Pantoprazole Sodium 40 mg 01/16/25 15:30 01/17/25 08:36 Pantoprazole 40 Mg Tablet PO 40 mg QAM PANFILO Administration Potassium Chloride 20 meq 01/17/25 08:00 01/17/25 08:36 Potassium Chloride 20 Meq Er Tablet PO 20 meq DAILY@0800 PANFILO Administration Thiamine HCl 100 mg 01/17/25 09:00 01/17/25 08:36 Thiamine Hcl 100 Mg Tablet PO 100 mg DAILY PANFILO Administration Radiology Results: ITS Impressions Head CT 01/16/25 11:28 IMPRESSION: 1. Normal brain. Cervical Spine CT 01/16/25 11:29 IMPRESSION: 1. No fracture. 2. Mild cervical spondylosis. Chest X-Ray 01/16/25 13:08 IMPRESSION: 1. No acute cardiopulmonary findings given portable technique. Labs Labs: Laboratory Results - last 24 hr 01/16/25 01/16/25 01/17/25 15:32 18:57 00:03 WBC RBC Hgb Hct MCV MCH MCHC RDW Plt Count MPV Immature Gran % (Auto) Neut % (Auto) Lymph % (Auto) [place] % (Auto) Eos % (Auto) Baso % (Auto) Lymph # (Auto) [place] # (Auto) Eos # (Auto) Baso # (Auto) Abs Immat Gran (auto) Absolute Neuts (auto) Absolute Nucleated RBC Nucleated RBC % % Immature Plt Fraction Sodium 134 L Potassium 3.0 L Chloride 98 Carbon Dioxide 28 Anion Gap 8 BUN 9 Creatinine 0.77 Estim Creat Clear Calc 121 Estimated GFR > 60 Glucose 77 POC Capillary Glucose 90 77 Calcium 8.9 Magnesium 1.6 Total Bilirubin AST ALT Alkaline Phosphatase Ammonia Total Protein Albumin 01/17/25 01/17/25 01/17/25 03:59 06:26 11:22 WBC 7.9 RBC 4.49 L Hgb 13.4 L Hct 39.2 L MCV 87.3 MCH 29.8 MCHC 34.2 RDW 13.8 Plt Count 101 L MPV 9.8 Immature Gran % (Auto) 0.4 Neut % (Auto) 71.5 Lymph % (Auto) 18.9 [place] % (Auto) 8.7 H Eos % (Auto) 0.0 Baso % (Auto) 0.5 Lymph # (Auto) 1.48 [place] # (Auto) 0.7 H Eos # (Auto) 0.0 Baso # (Auto) 0.0 Abs Immat Gran (auto) 0.03 Absolute Neuts (auto) 5.6 Absolute Nucleated RBC 0.000 Nucleated RBC % 0.0 % Immature Plt Fraction 4.1 Sodium 131 L Potassium 2.9 L Chloride 96 L Carbon Dioxide 29 Anion Gap 6 BUN 4 L D Creatinine 0.61 L Estim Creat Clear Calc 149 Estimated GFR > 60 Glucose 79 POC Capillary Glucose 97 83 Calcium 9.4 Magnesium 1.6 Total Bilirubin 1.8 H AST 204 H ALT 83 H Alkaline Phosphatase 96 Ammonia < 9 L Total Protein 6.9 Albumin 4.1 Assessment and Plan Assessment and Plan (1) Alcohol withdrawal: Qualifiers: Complication of substance-induced condition: with unspecified complication Qualified Code(s): F10.939 - Alcohol use, unspecified with withdrawal, unspecified Code(s): F10.939 - Alcohol use, unspecified with withdrawal, unspecified Status: Acute Assessment and Plan: Alcohol withdrawal and a seizure lasting about 1 minute while EN route to the ED. Has been abusing alcohol for about 5 years. Patient drinks up to half a handle of vodka daily. He has recently been trying to decrease his alcohol intake so he takes shots throughout the day - daily ETOH use: Half a handle of vodka daily. Recently attempting to decrease intake. - last drink: Early this morning at about 5:00 a.m. - CIWA protocol in place - diazepam PRN - Librium 50 mg scheduled - thiamine and folic acid daily - seizure precautions - neurochecks Q2H - LR at 125 - antiemetics PRN - readiness to quit: Care coordination consulted. Patient is interested in discharging to inpatient rehab then sober living housing after that. (2) Pneumonia: Qualifiers: Aspiration pneumonia type: due to vomit Laterality: unspecified laterality Lung location: unspecified part of lung Pneumonia type: aspiration pneumonia Qualified Code(s): J69.0 - Pneumonitis due to inhalation of food and vomit Code(s): J18.9 - Pneumonia, unspecified organism Status: Acute Assessment and Plan: Concern for aspiration pneumonia due to frequent vomiting, leukocytosis, fever - started on Zosyn on 01/16 - acetaminophen p.r.n. - DuoNeb p.r.n. (3) Hypokalemia: Code(s): E87.6 - Hypokalemia Status: Acute Assessment and Plan: Potassium initially 2.5 on presentation. Improved to 3.0 after 20 mEq potassium chloride and 40 mEq p.o. -continue to trend electrolytes Replace and monitor (4) Serum ammonia increased: Code(s): E72.20 - Disorder of urea cycle metabolism, unspecified Status: Acute Assessment and Plan: Ammonia 61 on admit. -lactulose 20 g p.o. Q8 -titrate to achieve 2-3 soft bowel movements daily -switch to lactulose enema if patient unable to tolerate p.o. Repeat ammonia normal Plan Diet: Regular GI prophylaxis: Protonix DVT prophylaxis: SCDs Code status: Full
[2025-01-17] MEDS: AZITHROMYCIN IV 500 MG in SODIUM CHLORIDE 0.9% IV 250 ML IVPB (17:10)
[2025-01-18] VITALS (7 sets, daily range): BP systolic 118–139; BP diastolic 73–89; PULSE 82–120; RESP 16–20; TEMP 35.6–36.7; O2SAT 99–100
--- NOTE | 2025-01-18 01:05 | ADMGEN ---
This patient, Jorge Oneil, was transferred to [facility] Surg Room 310-01. Patient/family oriented to hospital policies and general routines including ID bracelet, bed and alarms, visiting hours, pain management, procedures, bathroom and other care routines, personal items, smoking policy, room service/diet, and visiting hours. Information on how to activate the Rapid Response Team has been discussed. Patient/Family are encouraged to report perceived risks to care and to ask questions if they do not understand what they are told or what they should do.
--- NOTE | 2025-01-18 01:07 | PC.NURSE ---
pt has arrived to floor at this time. pt oriented to room all belongings and call light in reach. pt educated on bed alarm and refused to have it on stating he doesn't need it. educated on the importance of the bed alarm and continue to refuse. seizure precautions in place at this time. pt currently in shower independently.
[2025-01-18 05:28] LABS: Hematocrit 41.4 % (42.0-52.0); Hemoglobin 13.9 g/dL (14.0-18.0); Immature Granulocyte Percent A 0.5 % (0-0.5); Immature Platelet Fraction Pct 5.1 % (0.9-11.2); Lymphocytes Absolute Auto 1.35 K/mm3 (0.9-3.2); Mean Corpuscular HGB Conc 33.6 g/dl (32-36); Mean Corpuscular Hemoglobin 30.1 pg (26-34); Mean Corpuscular Volume 89.6 fl (80-100); Nucleated Red Blood Cells Absolute Auto 0.000 K/mm3 (0.0-0.012); Nucleated Red Blood Cells Perc 0.0 % (0.0-0.2); Platelet Count Result 101 k/mm3 (150-375); Red Blood Count 4.62 M/mm3 (4.6-6.20); White Blood Count 7.5 K/mm3 (4.5-10.0)
[2025-01-18] MEDS: chlordiazePOXIDE (*CRX) 25 MG CAPSULE 50 MG PO ×3 (05:42→17:46)
[2025-01-18] MEDS: PIPERACILLIN/TAZOBACTAM SOD 3.375 GM in SODIUM CHLORIDE 0.9% IV 50 ML 100 ML IVPB (05:43)
[2025-01-18 05:54] LABS: Alanine Aminotransferase 82 U/L (6-50); Albumin Level 4.0 g/dL (3.5-5.1); Alkaline Phosphatase 100 U/L (38-126); Anion Gap 3 mmol/L (4-12); Aspartate Amino Transferase 217 U/L (17-59); Bilirubin,Total 0.9 mg/dL (0.2-1.3); Blood Urea Nitrogen 7 mg/dL (9-20); Calcium 9.2 mg/dL (8.4-10.2); Carbon Dioxide 33 mmol/L (22-30); Chloride 100 mmol/L (98-107); Estimated CRCL calculation 170 ml/min; Estimated Glomerular Filt Rate > 60; Glucose 103 mg/dL (65-110); Magnesium 2.1 mg/dL (1.6-2.3); Potassium 3.3 mmol/L (3.4-5.0); Sodium 136 mmol/L (137-145); Total Protein 7.0 g/dL (6.3-8.2)
[2025-01-18] MEDS: NICOTINE (*PBKC) 21 MG PATCH 1 PATCH TRANSDERM (09:08)
[2025-01-18] MEDS: POTASSIUM CHLORIDE 20 MEQ ER TABLET 40 MEQ PO ×2 (09:08→13:19)
[2025-01-18] MEDS: FOLIC ACID 1 MG TABLET PO (09:08)
[2025-01-18] MEDS: THIAMINE HCL 100 MG TABLET PO (09:08)
[2025-01-18] MEDS: POTASSIUM CHLORIDE 20 MEQ ER TABLET PO (09:08)
[2025-01-18] MEDS: PANTOPRAZOLE 40 MG TABLET PO (09:08)
--- NOTE | 2025-01-18 12:54 | P.PNIM_ITS ---
Assessment and Plan Assessment and Plan (1) Alcohol withdrawal: Qualifiers: Complication of substance-induced condition: with unspecified complication Qualified Code(s): F10.939 - Alcohol use, unspecified with withdrawal, unspecified Code(s): F10.939 - Alcohol use, unspecified with withdrawal, unspecified Status: Acute Assessment and Plan: Alcohol withdrawal and a seizure lasting about 1 minute while EN route to the ED. Has been abusing alcohol for about 5 years. Patient drinks up to half a handle of vodka daily. He has recently been trying to decrease his alcohol intake so he takes shots throughout the day - daily ETOH use: Half a handle of vodka daily. Recently attempting to decreas e intake. - last drink: Early this morning at about 5:00 a.m. - CIWA protocol in place - diazepam PRN - Librium 50 mg scheduled - thiamine and folic acid daily - seizure precautions - neurochecks Q2H - LR at 125 which has been stopped now. - antiemetics PRN - readiness to quit: Care coordination consulted. Patient is interested in discharging to inpatient rehab then sober living housing after that. (2) Pneumonia: Qualifiers: Aspiration pneumonia type: due to vomit Laterality: unspecified laterality Lung location: unspecified part of lung Pneumonia type: aspiration pneumonia Qualified Code(s): J69.0 - Pneumonitis due to inhalation of food and vomit Code(s): J18.9 - Pneumonia, unspecified organism Status: Acute Assessment and Plan: Concern for aspiration pneumonia due to frequent vomiting, leukocytosis, fever - started on Zosyn on 01/16 - acetaminophen p.r.n. - DuoNeb p.r.n. Chest x-ray clear. Will stop IV antibiotics (3) Hypokalemia: Code(s): E87.6 - Hypokalemia Status: Acute Assessment and Plan: Potassium initially 2.5 on presentation. Improved to 3.0 after 20 mEq potassium chloride and 40 mEq p.o. -continue to trend electrolytes Replace and monitor (4) Serum ammonia increased: Code(s): E72.20 - Disorder of urea cycle metabolism, unspecified Status: Acute Assessment and Plan: Ammonia 61 on admit. -lactulose 20 g p.o. Q8 -titrate to achieve 2-3 soft bowel movements daily -switch to lactulose enema if patient unable to tolerate p.o. Repeat ammonia normal Hold lactulose due to diarrhea Plan Diarrhea check C diff. Stop IV antibiotics. Lactulose Diet: Regular GI prophylaxis: Protonix DVT prophylaxis: SCDs Code status: Full Subjective Date/time seen: 01/18/25 12:54 Interval history: Feels little better. CIWA score reviewed. Trending down. Remains on Librium. Reports diarrhea. Denies any coughing. Review of Systems Review of Systems: All systems reviewed & are unremarkable except as noted in HPI and below Exam Narrative: GENERAL: Well-appearing, well-nourished, no acute distress HEAD: Normocephalic, atraumatic. Injury to his face noted with scabs no active bleeding EYES: PERRL and EOMI. ENT: Dry mucous membranes. NECK: Supple. CHEST: Clear to auscultation. No respiratory distress. HEART: Regular rate and rhythm, Normal peripheral pulses. ABDOMEN: Soft, nontender, nondistended. EXTREMITIES: Normal range of motion. No edema. SKIN: Warm, dry, no rash. NEURO: Alert and oriented x3. PSYCH: Normal mood and affect. Slightly tremulous Objective Data Vital Signs Vital Signs: Vital Signs - 24 hr 01/17/25 14:00 01/17/25 16:00 01/17/25 16:00 Temperature 97.5 F L Pulse Rate 79 77 111 H Pulse Rate [Apical] Respiratory Rate 18 Blood Pressure 125/80 Pulse Oximetry 99 Oxygen Delivery 01/17/25 16:00 01/17/25 16:00 01/17/25 20:00 Temperature Pulse Rate 115 H Pulse Rate [Apical] 111 H 76 Respiratory Rate 18 Blood Pressure 125/80 Pulse Oximetry 99 Oxygen Delivery Room Air 01/18/25 00:00 01/18/25 00:00 01/18/25 01:09 Temperature 97.9 F Pulse Rate 94 Pulse Rate [Apical] 120 H Respiratory Rate 16 Blood Pressure 128/87 Pulse Oximetry 100 Oxygen Delivery Room Air 01/18/25 03:14 01/18/25 05:50 01/18/25 08:00 Temperature 97.5 F L 96.0 F L Pulse Rate 87 85 Pulse Rate [Apical] 120 H Respiratory Rate 16 16 Blood Pressure 120/77 123/85 121/82 Pulse Oximetry 100 100 Oxygen Delivery 01/18/25 08:00 01/18/25 08:00 Temperature Pulse Rate Pulse Rate [Apical] 100 Respiratory Rate Blood Pressure 121/82 Pulse Oximetry Oxygen Delivery Room Air Intake/Output Intake/Output: Intake & Output 01/15/25 01/16/25 01/17/25 01/18/25 23:59 23:59 23:59 23:59 Intake Total 3100 6231.3 836 Balance 3100 6231.3 836 Meds/Results Medications: Active Medications Generic Name Dose Route Start Last Admin Trade Name Freq PRN Reason Stop Dose Admin Acetaminophen 650 mg 01/16/25 13:17 Acetaminophen 325 Mg Tablet PO Q4H PRN Mild Pain (1-3) or Fever Albuterol/Ipratropium 3 ml 01/16/25 17:08 Ipratropium 0.5 Mg/Albuterol Sulfate 2.5 Mg (Base) Ampul.Neb 3 Ml INHALATION Q6HRT PRN Shortness Of Breath Or Wheezing Chlordiazepoxide HCl 50 mg 01/16/25 18:00 01/18/25 12:31 Chlordiazepoxide (*Crx) 25 Mg Capsule PO 50 mg Q6HR PANFILO Administration Diazepam 5 mg 01/16/25 16:25 Diazepam Inj (*Crx) 10 Mg/2 Ml Syringe IV PUSH Q1H PRN Alcohol Withdrawal Folic Acid 1 mg 01/17/25 09:00 01/18/25 09:08 Folic Acid 1 Mg Tablet PO 1 mg DAILY PANFILO Administration Azithromycin 500 mg/ Sodium 250 mls @ 250 mls/hr 01/17/25 16:00 01/17/25 17:10 Chloride IVPB 01/20/25 16:59 250 mls/hr Q24H PANFILO Administration Lactulose 20 gm 01/16/25 13:55 01/18/25 05:42 Lactulose 20 Gm/30 Ml Udc PO Not Given On Hold: 01/18/25 12:54 Q8H PANFILO Nicotine 1 patch 01/16/25 15:55 01/18/25 09:08 Nicotine (*Pbkc) 21 Mg Patch TRANSDERM 1 patch DAILY PANFILO Administration Ondansetron HCl 4 mg 01/16/25 13:27 01/16/25 15:28 Ondansetron Inj 4 Mg/2 Ml Vial IV PUSH 4 mg Q4H PRN Administration Nausea And Vomiting Pantoprazole Sodium 40 mg 01/16/25 15:30 01/18/25 09:08 Pantoprazole 40 Mg Tablet PO 40 mg QAM PANFILO Administration Potassium Chloride 20 meq 01/17/25 08:00 01/18/25 09:08 Potassium Chloride 20 Meq Er Tablet PO 20 meq DAILY@0800 PANFILO Administration Thiamine HCl 100 mg 01/17/25 09:00 01/18/25 09:08 Thiamine Hcl 100 Mg Tablet PO 100 mg DAILY PANFILO Administration Radiology Results: ITS Impressions Head CT 01/16/25 11:28 IMPRESSION: 1. Normal brain. Cervical Spine CT 01/16/25 11:29 IMPRESSION: 1. No fracture. 2. Mild cervical spondylosis. Chest X-Ray 01/16/25 13:08 IMPRESSION: 1. No acute cardiopulmonary findings given portable technique. Labs Labs: Laboratory Results - last 24 hr 01/17/25 01/18/25 01/18/25 16:29 00:01 05:12 WBC 7.5 RBC 4.62 Hgb 13.9 L Hct 41.4 L MCV 89.6 MCH 30.1 MCHC 33.6 RDW 13.6 Plt Count 101 L MPV 10.0 Immature Gran % (Auto) 0.5 Neut % (Auto) 72.9 Lymph % (Auto) 18.0 L Will % (Auto) 7.2 Eos % (Auto) 0.9 Baso % (Auto) 0.5 Lymph # (Auto) 1.35 Will # (Auto) 0.5 Eos # (Auto) 0.1 Baso # (Auto) 0.0 Abs Immat Gran (auto) 0.04 H Absolute Neuts (auto) 5.5 Absolute Nucleated RBC 0.000 Nucleated RBC % 0.0 % Immature Plt Fraction 5.1 Sodium 136 L Potassium 3.3 L Chloride 100 Carbon Dioxide 33 H Anion Gap 3 L BUN 7 L Creatinine 0.58 L Estim Creat Clear Calc 170 Estimated GFR > 60 Glucose 103 POC Capillary Glucose 135 H 83 Calcium 9.2 Magnesium 2.1 Total Bilirubin 0.9 AST 217 H ALT 82 H Alkaline Phosphatase 100 Total Protein 7.0 Albumin 4.0 01/18/25 01/18/25 05:39 11:53 WBC RBC Hgb Hct MCV MCH MCHC RDW Plt Count MPV Immature Gran % (Auto) Neut % (Auto) Lymph % (Auto) Will % (Auto) Eos % (Auto) Baso % (Auto) Lymph # (Auto) Will # (Auto) Eos # (Auto) Baso # (Auto) Abs Immat Gran (auto) Absolute Neuts (auto) Absolute Nucleated RBC Nucleated RBC % % Immature Plt Fraction Sodium Potassium Chloride Carbon Dioxide Anion Gap BUN Creatinine Estim Creat Clear Calc Estimated GFR Glucose POC Capillary Glucose 172 H 145 H Calcium Magnesium Total Bilirubin AST ALT Alkaline Phosphatase Total Protein Albumin
[2025-01-18 16:37] LABS: Toxigenic C. Diff NEGATIVE (NEGATIVE)
[2025-01-19] VITALS: BP 118/73; PULSE 98
[2025-01-19 03:18] VITALS: BP 121/77; PULSE 88
[2025-01-19] MEDS: chlordiazePOXIDE (*CRX) 25 MG CAPSULE 50 MG PO (05:09)
[2025-01-19 05:28] VITALS: BP 146/89; PULSE 82; RESP 18; TEMP 36.7; O2SAT 100
[2025-01-19 07:59] VITALS: BP 115/75; PULSE 77; RESP 18; TEMP 36; O2SAT 100
[2025-01-19 08:00] VITALS: PULSE 84
[2025-01-19] MEDS: THIAMINE HCL 100 MG TABLET PO (08:37)
[2025-01-19] MEDS: FOLIC ACID 1 MG TABLET PO (08:37)
[2025-01-19] MEDS: POTASSIUM CHLORIDE 20 MEQ ER TABLET PO (08:37)
[2025-01-19] MEDS: PANTOPRAZOLE 40 MG TABLET PO (08:37)
[2025-01-19] MEDS: NICOTINE (*PBKC) 21 MG PATCH 1 PATCH TRANSDERM (08:43)
[2025-01-19] MEDS: POTASSIUM CHLORIDE 20 MEQ PACKET (FOR LIQUID) 40 MEQ PO (10:14)
--- NOTE | 2025-01-19 11:16 | PM.DS ---
DS: Summary Time Spent with Patient Time attestation: Total time spent providing and/or coordinating discharge services: DS: Data Data Completed and Pending Labs on day of discharge: Labs from last 24 hours 01/19/25 01/18/25 01/18/25 04:21 23:05 18:23 POC Capillary Glucose 171 H 110 H 132 H C. difficile (PCR) 01/18/25 01/18/25 15:20 11:53 POC Capillary Glucose 145 H C. difficile (PCR) Negative Discharge Plan Discharge Attending physician on discharge: Jozef May Discharging Clinician: Vicente Starr Patient Disposition: Home Activity: as tolerated Diet: heart healthy Discharge Instructions: patient is being discharged and will go to [facility] for inpatient substance abuse program, patient is instructed to avoid alcohol, patient to follow up with his primary care provider as soon as possible Patient Instructions: Antibiotic Form Patient Language: Pakistani Follow-up/Referrals: Ravin Gale MD [Primary Care Provider, Internal Medicine] Discharge Medications: New chlordiazepoxide HCl 25 mg Capsule 25 mg PO Q6H PRN (Reason: Withdrawal) Qty: 16 0RF folic acid 1 mg Tablet 1 mg PO DAILY Qty: 90 0RF pantoprazole 40 mg Tablet,Delayed Release (Dr/Ec) 40 mg PO QAM Qty: 30 0RF thiamine HCl (vitamin B1) [Vitamin B-1] 100 mg Tablet 100 mg PO DAILY Qty: 90 0RF lactulose 10 gram/15 mL Solution 20 g PO Q8H Qty: 1000 0RF nicotine [Nicoderm CQ] 21 mg/24 hr Patch 24 Hour 1 patch transdermal DAILY Qty: 28 0RF Other Ambulatory Orders: Basic Metabolic Panel (Routine) Timeframe: 2 Days Location: Determined by Patient Ordered By: Vicente Starr Magnesium (Routine) Timeframe: 2 Days Location: Determined by Patient Ordered By: Vicente Starr Date of admission: 01/16/25 13:17 Primary Care Provider: Ravin Gale Admitting Provider: Jozef May Attending physician on admission: Jozef May Condition: Stable
== END 2025-01-19 12:40 | disposition home or self-care (01) ==
LOC: ANHED 13:48 → ANH3MEDSUR 01-18 09:34 → ANHIMU 01-20 07:07
PROVIDERS: Nurse Practitioner Adult Health; Admitting Provider Internal Medicine; Emergency Provider Emergency Medicine; PCP Emergency Medicine; Visit Provider Family Medicine
DX: F10.939 Alcohol use, unspecified with withdrawal, unspecified (principal); J69.0 Pneumonitis due to inhalation of food and vomit; E87.6 Hypokalemia; E72.20 Disorder of urea cycle metabolism, unspecified; R25.1 Tremor, unspecified; M47.812 Spondylosis without myelopathy or radiculopathy, cervical region; F17.290 Nicotine dependence, other tobacco product, uncomplicated; Z82.3 Family history of stroke; Z81.8 Family history of other mental and behavioral disorders; Z81.1 Family history of alcohol abuse and dependence; Z80.0 Family history of malignant neoplasm of digestive organs; Z80.8 Family history of malignant neoplasm of other organs or systems; Z80.1 Family history of malignant neoplasm of trachea, bronchus and lung; Z83.6 Family history of other diseases of the respiratory system
CPT/HCPCS: 36415; 70450; 71045; 72125; 80048; 80053; 80307; 82077; 82140; 82948; 83690; 83735; 85025; 85055; 85610; 85730; 87493; 96361; 96366; 96367; 96374; 96375; 96376; 99285; A9270; G0378; J0456; J2405; J2543; J3360; J3411; J3475; J3480; J7030; J7040; J7050; J7120